=== PATIENT | female | born 1940 | race Caucasian/White ===

== ENCOUNTER 2016-12-20 20:42 | Emergency (ER) | payer OTHER, MEDICARE ==
[~2016-12-20] VITALS: Ht 162.6 cm; Wt 65.8 kg
[~2016-12-20 20:42] MED LIST: ZOFRAN ODT4 M1 PO
--- NOTE | 2016-12-20 21:01 | ED MVC/FALL/TRAUMA COMPLAINT ---
History of Present Illness General Chief Complaint: Fall Stated Complaint: BIBA FALL Source: patient, family, old records, EMS Exam Limitations: no limitations Vital Signs & Intake/Output Vital Signs & Intake/Output Vital Signs Date Time Temp Pulse Resp B/P Pulse O2 O2 Flow FiO2 Ox Delivery Rate 12/20 2238 78 14 139/82 98 Room Air 12/20 2105 98.2 82 14 117/65 96 Room Air Allergies Coded Allergies: aspirin (Severe, BLEEDING 10/23/16) Barbiturates (10/23/16) Corticosteroids (Glucocorticoids) (10/23/16) NSAIDS (Non-Steroidal Anti-Inflamma (10/23/16) Sulfa (Sulfonamide Antibiotics) (10/23/16) amoxicillin (From AUGMENTIN) (10/23/16) cefoxitin (10/23/16) celecoxib (From CELEBREX) (10/23/16) cephalexin (From KEFLEX) (10/23/16) ciprofloxacin (From CIPRO) (10/23/16) clavulanic acid (From AUGMENTIN) (10/23/16) diphenhydramine (From BENADRYL) (10/23/16) hydrocodone (10/23/16) ibuprofen (10/23/16) levofloxacin (From LEVAQUIN) (10/23/16) loratadine (From CLARITIN) (10/23/16) prednisone (10/23/16) vancomycin (10/23/16) Uncoded Allergies: CT SCAN DYE (10/23/16) HYDROCHLOROQUINE (10/23/16) Reconcile Medications Hydrocortisone 2.5 % CREAM..G. 2.5 % TOPICAL (Reported) Montelukast Sodium 10 MG TABLET 10 MG PO ASTHMA (Reported) Ondansetron (Zofran Odt) 4 MG TAB.RAPDIS 1 TAB PO Q6 PRN NAUSEA Sertraline HCl 50 MG TABLET 1 TAB PO DAILY DEPRESSION (Reported) Triage Nurses Notes Reviewed? yes HPI: Patient lives in assisted living. Patient states that her cane got caught between her legs and she fell forward and hit her face and her chest on the floor. Patient denies any loss of consciousness. Patient is complaining of pain to her jaw, pain in her neck, pain to her chest and pain to her left thumb. The pain in her jaw is aching in nature. There are no aggravating or mitigating factors. There is no radiation. She rates as a 4 out of 10. The pain in her neck as aching in nature and is in the midline. There is no radiation. There are no aggravating or mitigating factors. She rates the pain is 2 out of 10. The pain in her chest is sharp in nature and increases with inspiration. There is no radiation. She rates the pain as 6 out of 10. The pain in her left thumb is constant and increases with movement. There is no radiation. The pain is aching in nature. Patient rates the pain as 3 out of 10. Patient denies any headache or blurry vision. Is no loss of consciousness. There is no nausea or vomiting. Past History Travel History Traveled to [place] past 21 day No Medical History Any Pertinent Medical History? see below for history EENT: glaucoma, EXOPHORIA R EYE DRY EYES Musculoskeletal: osteoarthritis, rheumatoid arthritis Blood Disorders: VON WIL[place]BRAND DISEASE Surgical History Surgical History: non-contributory Psychosocial History What is your primary language Japanese Tobacco Use: Never used ETOH Use: denies use Illicit Drug Use: denies illicit drug use Family History Hx Contributory? No Review of Systems Review of Systems Constitutional: Reports: no symptoms. Eyes: Reports: no symptoms. Ears, Nose, Throat, Mouth: Reports: no symptoms. Respiratory: Reports: see HPI, short of breath. Cardiovascular: Reports: see HPI, chest pain. Gastrointestinal/Abdominal: Reports: no symptoms. Genitourinary: Reports: no symptoms. Musculoskeletal: Reports: see HPI, joint pain, neck pain. Skin: Reports: no symptoms. Neurological/Psychological: Reports: no symptoms. All Other Systems: Reviewed and Negative Physical Exam Physical Exam General Appearance: well developed/nourished, alert, awake, anxious, moderate distress Head: atraumatic, normal appearance Eyes: Bilateral: PERRL, EOMI. Ears, Nose, Throat, Mouth: hearing grossly normal, moist mucous membrane, STABLE Neck: normal inspection, supple, normal alignment, tender lateral, tender midline Respiratory: normal breath sounds, no respiratory distress, lungs clear, TENDER TO PALP LOWER STERNUM Cardiovascular: regular rate/rhythm, normal peripheral pulses Gastrointestinal: normal bowel sounds, soft, non-tender, no organomegaly Back: normal inspection, normal range of motion Extremities: normal range of motion, FULL ROM LEFT THUMB Neurologic/Psych: no motor/sensory deficits, awake, alert, oriented x 3, normal gait, normal mood/affect Skin: intact, normal color, warm/dry Core Measures ACS in differential dx? No Severe Sepsis Present: No Septic Shock Present: No Progress Differential Diagnosis: C/T/L spine injury, ext injury, ICH Plan of Care: Orders Procedure Date/time Status XRY-HAND, 3 View LEFT 12/[address] HEAD WO IV CONTRAST 12/[address] MAXILLOFACIAL W/O CON 12/[address] CHEST WO IV CONTRAST 12/[address] CERV SPINE WO IV CONTRAST 12/20 2100 Active Diagnostic Imaging: Viewed by Me: Radiology Read, CT Scan. Discussed w/RAD: Radiology Read, CT Scan. Radiology Impression: PATIENT: MONSE SALAZAR PRESENT AGE: 76 PATIENT ACCOUNT NO: [id number] : 42 LOCATION: [facility] ORDERING PHYSICIAN: GABRIELE GUTIERREZ MD SERVICE DATE: 12/20/16 EXAM TYPE: RAD - XRY-HAND, LEFT EXAMINATION: XR HAND, LEFT CLINICAL INFORMATION: Left hand pain following fall. COMPARISON: None. TECHNIQUE: AP, lateral, and oblique views of the left hand. FINDINGS: No acute osseous or articular abnormality involving the left hand. No appreciable fracture or dislocation of the left hand. Minimal joint space narrowing involving the first metacarpophalangeal joint as well as the proximal and distal interphalangeal joints. No cortical destruction or significant periosteal reaction. No cortical erosions. Soft tissues appear unremarkable. IMPRESSION: No acute fracture or dislocation of the left hand. DICTATED BY: ELIA KILGORE MD DATE/TIME DICTATED:12/20/162213 SERVICES MANAGER:BLAS DATE/TIME TRANSCRIBED:12/20/162213 CONFIDENTIAL, DO NOT COPY WITHOUT APPROPRIATE AUTHORIZATION. <Electronically signed in Other Vendor System> SIGNED BY: ELIA KILGORE MD 12/20/162224, PATIENT: MONSE SALAZAR PRESENT AGE: 76 PATIENT ACCOUNT NO: [id number] : 42 LOCATION: [facility] ORDERING PHYSICIAN: GABRIELE GUTIERREZ MD SERVICE DATE: 12/20/16 EXAM TYPE: CAT - CT CHEST WO IV CONTRAST EXAMINATION: CT CHEST WITHOUT CONTRAST CLINICAL INFORMATION: Trauma COMPARISON: CT of the abdomen and pelvis on 10/22/2016. Lung bases included. TECHNIQUE: Multidetector volumetric CT imaging of the chest was done. Axial MIP volume rendering provided. Sagittal and coronal reformatted images were obtained. DLP: 194 mGy-cm FINDINGS: PREPRESS TECHNICIAN: The pet caregiver view demonstrates bibasilar areas of fibrosis and bronchiectasis and emphysematous changes similar to that seen on the abdominal CT in September 2016. LUNGS: Apical blebs and pleural thickening are present on the right. Both lungs generally show peripheral areas of fibrosis in the upper and lower lobes with advanced areas of bronchiectasis and fibrosis in the right lower lobe and to a lesser extent the left lower lobe posteriorly. There is no airspace disease or evidence of lung contusion/ hemorrhage. MEDIASTINUM: Subcentimeter lymph nodes are present in the anterior mediastinum, the AP window, pretracheal space, and the subcarinal space. The juan miguel are difficult to interpret without IV contrast. Presumably these lymph nodes are reactive. The heart is not enlarged. There is no pericardial effusion. PLEURA: There is no pneumothorax or hemothorax. No pleural mass or thickening. AXILLA: Benign lymph nodes. UPPER ABDOMEN: A punctate nonobstructing calculus is seen in the upper pole of the right kidney. Otherwise unremarkable. OSSEOUS STRUCTURES: The sternum is intact. Prevertebral height alignment are maintained. Degenerative disc disease is present in the lower thoracic spine. The rib fractures are seen. IMPRESSION: 1. Peripheral pulmonary fibrosis. Concentrated fibrosis and bronchiectasis of the lower lobes, left greater than right. 2. No pneumothorax or hemothorax. No lung contusion. 3. No fractures. DICTATED BY: VIOLETA VILLAGRAN MD DATE/TIME DICTATED:12/20/162148 SERVICES MANAGER: BLAS DATE/TIME TRANSCRIBED:12/20/162148 CONFIDENTIAL, DO NOT COPY WITHOUT APPROPRIATE AUTHORIZATION. <Electronically signed in Other Vendor System> SIGNED BY: VIOLETA VILLAGRAN MD 12/20/162209, PATIENT: MONSE SALAZAR PRESENT AGE: 76 PATIENT ACCOUNT NO: [id number] : 42 LOCATION: [facility] ORDERING PHYSICIAN: GABRIELE GUTIERREZ MD SERVICE DATE: 12/20/16 EXAM TYPE: CAT - CT CERV SPINE WO IV CONTRAST; CT HEAD WO IV CONTRAST; CT MAXILLOFACIAL W/O CON EXAMINATION: CT HEAD, CT MAXILLARY SPINE AND CT CERVICAL SPINE. CLINICAL INFORMATION: Fall. Injury. COMPARISON: None. TECHNIQUE: 5 mm thin axial and reformatted 2.5 minutes and coronal images of brain were obtained. Subsequently 2.5 mm thin axial and reformatted 1.2 mm thin images of maxillofacial bones were obtained. Dose 1497. 2.5 mm thin axial and reformatted 2 mm thin sagittal and coronal images of cervical spine were obtained. Dose 307. FINDINGS: BRAIN: There is no acute intra-axial, extra-axial bleed, masses or midline shift. Cortes to white matter distinction is maintained. The lateral ventricles are symmetrical in size but slightly prominent. There is no acute infarct in evolution. Bone windows reveal no calvarial abnormality. There is no scalp soft tissue swelling. Bilateral mastoid and paranasal sinuses are well-aerated. MAXILLOFACIAL BONES: There is no visible maxillofacial bone fracture or deformity. The paranasal sinuses are well-aerated and clear. The bony sinus james are maintained. There is a paradoxical left middle turbinate. Otherwise is normal symmetry. The nasal septum is minimally deviated to the right. The cribriform plate and lamina preparation is intact. Bilateral TM joints and the mandible appear normal. Noted abnormality seen involving the nasal bones. The maxillofacial soft tissues are normal. There is normal symmetry of bilateral optic globes optic nodes and the extraocular muscles. CERVICAL SPINE: there is mild straightening of cervical lordosis. The vertebral heights a normal. Grade 1 anterolisthesis C4 over C5 is noted. Rest of the vertebral heights are normal. There is loss of C4-C5 and C5-C6 disc heights. no acute fracture, dislocation or subluxation seen. There is mild to moderate ventral spondylosis C4-C5 and C5-C6 disc levels. There is bilateral C3-C4, C4-C5 facet joint arthropathy. The prevertebral and paravertebral soft tissues are normal. IMPRESSION: No acute intracranial process seen. There is no maxillofacial, nasal or mandibular fracture. The paranasal sinuses are clear an elevated. DICTATED BY : XAVI OCASIO,JOHN DATE/TIME DICTATED:12/20/162147 SERVICES MANAGER:BLAS DATE/TIME TRANSCRIBED:12/20/162147 CONFIDENTIAL, DO NOT COPY WITHOUT APPROPRIATE AUTHORIZATION. <Electronically signed in Other Vendor System> SIGNED BY: JOHN HURLEY MD 12/20/16 8700 Departure Departure Disposition: HOME OR SELF CARE Condition: Stable Clinical Impression Primary Impression: Head injury Secondary Impressions: Cervical strain, Chest wall contusion, Left thumb sprain Referrals: BARB OCASIO,BRIDGET Patricia (PCP/Family) Additional Instructions: RETURN IF SYMPTOMS WORSEN OR NEEDED Departure Forms: Customer Survey General Discharge Information
[2016-12-20] MEDS ORDERED: SERTRALINE HCL50 MG PO (21:15)
[2016-12-20] MEDS ORDERED: MONTELUKAST SOD10 M1 PO (21:17)
[2016-12-20] MEDS ORDERED: HYDROCORTISO453.6 G2 (21:18)
--- NOTE | 2016-12-20 22:04 | CT SCAN REPORT ---
EXAMINATION: CT HEAD, CT MAXILLARY SPINE AND CT CERVICAL SPINE. CLINICAL INFORMATION: Fall. Injury. COMPARISON: None. TECHNIQUE: 5 mm thin axial and reformatted 2.5 minutes and coronal images of brain were obtained. Subsequently 2.5 mm thin axial and reformatted 1.2 mm thin images of maxillofacial bones were obtained. Dose 1497. 2.5 mm thin axial and reformatted 2 mm thin sagittal and coronal images of cervical spine were obtained. Dose 307. FINDINGS: BRAIN: There is no acute intra-axial, extra-axial bleed, masses or midline shift. Cortes to white matter distinction is maintained. The lateral ventricles are symmetrical in size but slightly prominent. There is no acute infarct in evolution. Bone windows reveal no calvarial abnormality. There is no scalp soft tissue swelling. Bilateral mastoid and paranasal sinuses are well-aerated. MAXILLOFACIAL BONES: There is no visible maxillofacial bone fracture or deformity. The paranasal sinuses are well-aerated and clear. The bony sinus james are maintained. There is a paradoxical left middle turbinate. Otherwise is normal symmetry. The nasal septum is minimally deviated to the right. The cribriform plate and lamina preparation is intact. Bilateral TM joints and the mandible appear normal. Noted abnormality seen involving the nasal bones. The maxillofacial soft tissues are normal. There is normal symmetry of bilateral optic globes optic nodes and the extraocular muscles. CERVICAL SPINE: there is mild straightening of cervical lordosis. The vertebral heights a normal. Grade 1 anterolisthesis C4 over C5 is noted. Rest of the vertebral heights are normal. There is loss of C4-C5 and C5-C6 disc heights. no acute fracture, dislocation or subluxation seen. There is mild to moderate ventral spondylosis C4-C5 and C5-C6 disc levels. There is bilateral C3-C4, C4-C5 facet joint arthropathy. The prevertebral and paravertebral soft tissues are normal. IMPRESSION: No acute intracranial process seen. There is no maxillofacial, nasal or mandibular fracture. The paranasal sinuses are clear an elevated.
--- NOTE | 2016-12-20 22:10 | CT SCAN REPORT ---
EXAMINATION: CT CHEST WITHOUT CONTRAST CLINICAL INFORMATION: Trauma COMPARISON: CT of the abdomen and pelvis on 10/22/2016. Lung bases included. TECHNIQUE: Multidetector volumetric CT imaging of the chest was done. Axial MIP volume rendering provided. Sagittal and coronal reformatted images were obtained. DLP: 194 mGy-cm FINDINGS: GARLAND MACHINE OPERATOR: The foot tender view demonstrates bibasilar areas of fibrosis and bronchiectasis and emphysematous changes similar to that seen on the abdominal CT in September 2016. LUNGS: Apical blebs and pleural thickening are present on the right. Both lungs generally show peripheral areas of fibrosis in the upper and lower lobes with advanced areas of bronchiectasis and fibrosis in the right lower lobe and to a lesser extent the left lower lobe posteriorly. There is no airspace disease or evidence of lung contusion/hemorrhage. MEDIASTINUM: Subcentimeter lymph nodes are present in the anterior mediastinum, the AP window, pretracheal space, and the subcarinal space. The juan miguel are difficult to interpret without IV contrast. Presumably these lymph nodes are reactive. The heart is not enlarged. There is no pericardial effusion. PLEURA: There is no pneumothorax or hemothorax. No pleural mass or thickening. AXILLA: Benign lymph nodes. UPPER ABDOMEN: A punctate nonobstructing calculus is seen in the upper pole of the right kidney. Otherwise unremarkable. OSSEOUS STRUCTURES: The sternum is intact. Prevertebral height alignment are maintained. Degenerative disc disease is present in the lower thoracic spine. The rib fractures are seen. IMPRESSION: 1. Peripheral pulmonary fibrosis. Concentrated fibrosis and bronchiectasis of the lower lobes, left greater than right. 2. No pneumothorax or hemothorax. No lung contusion. 3. No fractures.
--- NOTE | 2016-12-20 22:25 | RADIOLOGY REPORT ---
EXAMINATION: XR HAND, LEFT CLINICAL INFORMATION: Left hand pain following fall. COMPARISON: None. TECHNIQUE: AP, lateral, and oblique views of the left hand. FINDINGS: No acute osseous or articular abnormality involving the left hand. No appreciable fracture or dislocation of the left hand. Minimal joint space narrowing involving the first metacarpophalangeal joint as well as the proximal and distal interphalangeal joints. No cortical destruction or significant periosteal reaction. No cortical erosions. Soft tissues appear unremarkable. IMPRESSION: No acute fracture or dislocation of the left hand.
[2016-12-20 22:38] VITALS: BP 139/82
== END 2016-12-20 22:53 ==
LOC: ERH 20:42
DX: S16.1XXA Strain of muscle, fascia and tendon at neck level, initial encounter (principal); S63.602A Unspecified sprain of left thumb, initial encounter; S20.219A Contusion of unspecified front wall of thorax, initial encounter; S09.90XA Unspecified injury of head, initial encounter; R07.9 Chest pain, unspecified; W18.09XA Striking against other object with subsequent fall, initial encounter
CPT/HCPCS: 73130-LT

== ENCOUNTER 2018-06-10 16:20 | Emergency (ER) | payer OTHER, MEDICARE ==
[~2018-06-10] VITALS: Ht 154.9 cm; Wt 65.8 kg
[~2018-06-10 16:20] MED LIST changes: +HYDROCORTISO453.6 G2; +MONTELUKAST SOD10 M1 PO; +SERTRALINE HCL50 MG PO
--- NOTE | 2018-06-10 17:38 | CT SCAN REPORT ---
EXAMINATION: CT HEAD WITHOUT CONTRAST CT CERVICAL SPINE WITHOUT CONTRAST CLINICAL INFORMATION: Fall. Assess for fracture or intracranial hemorrhage. COMPARISON: CT scans of the head and cervical spine 12/20/2016. TECHNIQUE: Multidetector CT imaging of the head and cervical spine was performed without the use of intravenous contrast. Coronal and sagittal reformatted images were generated at the technologist workstation. DLP: 995 mGy-cm. FINDINGS: CT head: There is no evidence of acute intracranial hemorrhage or territorial infarction. No abnormal mass-effect or midline shift is seen. Cortes to white matter differentiation is well preserved. No extra-axial fluid collections are identified. There is mild commensurate prominence of the ventricles and sulci consistent with diffuse volume loss. Brain parenchymal attenuation appears normal. There are no acute osseous findings. There has been a right lens extraction. There is mild soft tissue swelling in the right supraorbital region laterally, consistent with an area of contusion. There are no large scalp hematomas. The mastoid air cells and visualized paranasal sinuses are well-aerated. CT cervical spine: There is a degenerative anterolisthesis of C4 on C5, demonstrated on prior imaging. There is narrowing of intervertebral disc height at multiple levels, which is most severe at C5-C6 and there are prominent marginal osteophytes anteriorly and bilaterally at this level. There are no acute fractures. There are multilevel facet arthropathic changes. These are most severe on the right. The lateral masses of C1 and C2 are normally aligned and the dens is intact. The atlantooccipital articulations are maintained. The paravertebral structures and visualized lung apices are unremarkable. IMPRESSION: 1. There are no acute intracranial bleeds or territorial infarcts. There are no acute osseous findings. There is soft tissue contusion in the right supraorbital region laterally. 2. There are no acute fractures or subluxations in the cervical spine. The study redemonstrates the degenerative anterolisthesis of C4 on C5. There are multilevel spondylitic changes.
--- NOTE | 2018-06-10 19:18 | ED GENERAL ADULT ---
History of Present Illness General Chief Complaint: Fall Stated Complaint: FALL Source: patient Exam Limitations: no limitations Vital Signs & Intake/Output Vital Signs & Intake/Output Vital Signs Date Time Temp Pulse Resp B/P B/P Pulse O2 O2 Flow FiO2 Mean Ox Delivery Rate 06/10 2000 97.2 80 16 126/80 97 Room Air 06/10 1624 96.5 92 18 129/83 96 Room Air Room Air Allergies Coded Allergies: aspirin (Severe, BLEEDING 10/23/16) Barbiturates (10/23/16) Corticosteroids (Glucocorticoids) (10/23/16) NSAIDS (Non-Steroidal Anti-Inflamma (10/23/16) Sulfa (Sulfonamide Antibiotics) (10/23/16) amoxicillin (From AUGMENTIN) (10/23/16) cefoxitin (10/23/16) celecoxib (From CELEBREX) (10/23/16) cephalexin (From KEFLEX) (10/23/16) ciprofloxacin (From CIPRO) (10/23/16) clavulanic acid (From AUGMENTIN) (10/23/16) diphenhydramine (From BENADRYL) (10/23/16) hydrocodone (10/23/16) ibuprofen (10/23/16) levofloxacin (From LEVAQUIN) (10/23/16) loratadine (From CLARITIN) (10/23/16) prednisone (10/23/16) vancomycin (10/23/16) Uncoded Allergies: CT SCAN DYE (10/23/16) HYDROCHLOROQUINE (10/23/16) Reconcile Medications Hydrocortisone 2.5 % CREAM..G. 2.5 % TOPICAL (Reported) Montelukast Sodium 10 MG TABLET 10 MG PO ASTHMA (Reported) Ondansetron (Zofran Odt) 4 MG TAB.RAPDIS 1 TAB PO Q6 PRN NAUSEA Sertraline HCl 50 MG TABLET 1 TAB PO DAILY DEPRESSION (Reported) Triage Note: BIBA FROM [facility]ISTED [facility]IV[facility] "I WAS SITTING AT [facility] AND I WAS SITTING IN A WIRE CHAIR AND MY CANE CAUGHT ON THE CHAIR AND IT TIPPED OVER, I HIT THE RIGHT SIDE OF MY HEAD". DENIES LOC, C/O SLIGHT HEADACHE. Triage Nurses Notes Reviewed? yes Onset: Abrupt Duration: hour(s): Timing: single episode today HPI: 78 year old female with a history of migraines, emphysema, osteoarthritis, rheumatoid arthritis, von Willebrand's, and depression presenting with right forehead hematoma status post mechanical fall. Patient reports that she was sitting at a table playing bingo and went to get up from her chair. The chair slipped out from under her and she fell and struck her head on a metal cabinet. Denies LOC. Had a headache earlier that self resolved. Denies visual changes, nausea, vomiting. States that she lives in an assisted living who required her to come in for evaluation. (Ching Gray) Past History Travel History Traveled to [place] past 21 day No Medical History Any Pertinent Medical History? 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 No (Ching Gray) Review of Systems Review of Systems Constitutional: Reports: no symptoms. EENTM: Reports: no symptoms. Respiratory: Reports: no symptoms. Cardiovascular: Reports: no symptoms. GI: Reports: no symptoms. Genitourinary: Reports: no symptoms. Musculoskeletal: Reports: no symptoms. Skin: Reports: see HPI. Neurological/Psychological: Reports: no symptoms. Hematologic/Endocrine: Reports: no symptoms. Immunologic/Allergic: Reports: no symptoms. All Other Systems: Reviewed and Negative (Ching Gray) Physical Exam Physical Exam General Appearance: well developed/nourished, no apparent distress, alert, awake , comfortable Head: right forehead hematoma Eyes: Bilateral: normal appearance, PERRL, EOMI. 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 No CVA/TIA Diagnosis: No Sepsis Present: No Sepsis Focused Exam Completed? No (Ching Gray) Progress Differential Diagnoses I considered the following diagnoses in my evaluation of the patient: [Hematoma versus ICH versus cranial fracture versus vertebral fracture] Plan of Care: CT scan IMPRESSION: 1. There are no acute intracranial bleeds or territorial infarcts. There are no acute osseous findings. There is soft tissue contusion in the right supraorbital region laterally. 2. There are no acute fractures or subluxations in the cervical spine. The study redemonstrates the degenerative anterolisthesis of C4 on C5. There are multilevel spondylitic changes. Patient is well-appearing and denies any current pain. She is cleared for discharge home back to her assisted living. Counseled on supportive care and tripped return precautions. She will follow-up with her primary care provider for reevaluation. Initial ED EKG: none (Ching Gray) Departure Departure Disposition: HOME OR SELF CARE Condition: Stable Clinical Impression Primary Impression: Traumatic hematoma of forehead Secondary Impressions: Closed head injury, Fall Referrals: Shannan OCASIO,Annalise Patricia (PCP/Family) Additional Instructions: Follow-up with your primary care provider for reevaluation. Use Tylenol as needed for pain. Apply ice to the hematoma on her forehead. Return to the emergency department for any new or worsening symptoms. Departure Forms: Customer Survey General Discharge Information (Ching Gray) PA/TRAFFIC ENGINEER Co-Sign Statement Statement: ED Attending supervision documentation- [x] I saw and evaluated the patient. I have also reviewed all the pertinent lab results and diagnostic results. I agree with the findings and the plan of care as documented in the PA's/TRAFFIC ENGINEER's documentation. [] I have reviewed the ED Record and agree with the PA's/TRAFFIC ENGINEER's documentation. [] Additions or exceptions (if any) to the PAs/TRAFFIC ENGINEER's note and plan are summarized below: [] (Summer OCASIO,Silverio Toledo) PA/TRAFFIC ENGINEER Co-Sign Statement Statement: ED Attending supervision documentation- [] I saw and evaluated the patient. I have also reviewed all the pertinent lab results and diagnostic results. I agree with the findings and the plan of care as documented in the PA's/TRAFFIC ENGINEER's documentation. [] I have reviewed the ED Record and agree with the PA's/TRAFFIC ENGINEER's documentation. [] Additions or exceptions (if any) to the PAs/TRAFFIC ENGINEER's note and plan are summarized below: [] (Noman OCASIO,Ascencion) Critical Care Note Critical Care Note Critical Care Time: non-applicable (Eric CANCINO,Ching)
[2018-06-10 20:00] VITALS: BP 126/80
== END 2018-06-10 20:01 ==
LOC: ERH 16:20
DX: S00.83XA Contusion of other part of head, initial encounter (principal); R51 Headache; W18.09XA Striking against other object with subsequent fall, initial encounter; Y93.9 Activity, unspecified; Y92.129 Unspecified place in nursing home as the place of occurrence of the external cause